=== PATIENT | male | born 1935 | race Hispanic/Latino ===

== ENCOUNTER 2018-03-26 08:25 | Outpatient (CLI) | payer MEDICARE ==
--- NOTE | 2018-03-26 09:58 | Mammography Report ---
BILATERAL DIGITAL DIAGNOSTIC MAMMOGRAM with CAD and BILATERAL BREAST ULTRASOUND: 03/26/18 CLINICAL: 82-year-old male with bilateral breast lumps. COMPARISON:None. FINDINGS: Relatively fatty breasts. Mild bilateral subareolar fibroglandular densities correlate with palpable markers. No mass, architectural distortion or suspicious calcifications. Ultrasound of both breasts (including all four quadrants and the retroareolar area) was performed and demonstrated mild bilateral benign subareolar fibroglandular densities. A 2 mm right breast cyst at 9 o'clock 3 cm from the nipple. No solid mass. IMPRESSION: Bilateral mild gynecomastia with no suspicion of malignancy. BI-RADS CATEGORY: 2 -- Benign RECOMMENDATION: Clinical follow-up. COMMENT: Patient follow-up letters are generated by our [employer] application.
== END 2018-03-26 08:26 | disposition home or self-care (01) ==
LOC: SPVWC 08:25
PROVIDERS: ATTEND Internal Medicine
DX: N62 Hypertrophy of breast (principal)
CPT/HCPCS: 77066